=== PATIENT | male | born 1970 | race Two or more races ===

== ENCOUNTER 2016-11-06 18:24 | Emergency (ER) | payer OTHER, MEDICAID ==
[~2016-11-06] VITALS: Ht 172.7 cm; Wt 87.1 kg
[~2016-11-06 18:24] MED LIST: ALPR-229; ALPR1TAB7; ALPR2TAB2; CLON2TAB; CLON2TAB3; HYDR-2598; LISI-646; METH10TA97; MORP15TA; OMEP20TA44; SUCR1TAB; SULF-169
[2016-11-06 18:32] VITALS: BP 188/101
[2016-11-06] MEDS ORDERED: ALPRAZolam 0.5 MG TAB PO ONE (21:30)
== END 2016-11-06 21:30 | disposition home or self-care (01) ==
LOC: ER 18:25
DX: F41.9 Anxiety disorder, unspecified (principal); M19.90 Unspecified osteoarthritis, unspecified site; E11.9 Type 2 diabetes mellitus without complications; Z76.0 Encounter for issue of repeat prescription; Z88.6 Allergy status to analgesic agent; Z87.442 Personal history of urinary calculi; Z90.49 Acquired absence of other specified parts of digestive tract

== ENCOUNTER 2016-11-13 15:59 | Emergency (ER) | payer OTHER, MEDICAID ==
[~2016-11-13] VITALS: Ht 172.7 cm; Wt 99.3 kg
[2016-11-13 16:19] VITALS: BP 129/80
== END 2016-11-13 19:32 | disposition left against medical advice (07) ==
LOC: ER 16:03
DX: Z76.0 Encounter for issue of repeat prescription (principal); Z53.21 Procedure and treatment not carried out due to patient leaving prior to being seen by health care provider
CPT/HCPCS: 82962

== ENCOUNTER 2016-11-14 11:43 | Emergency (ER) | payer OTHER, MEDICAID ==
[~2016-11-14] VITALS: Ht 172.7 cm; Wt 99.3 kg
[2016-11-14 11:50] VITALS: BP 148/78
[2016-11-14] MEDS ORDERED: KETOROLAC TROMETH 60MG/2ML VIAL IM ONE (13:30)
== END 2016-11-14 14:17 | disposition home or self-care (01) ==
LOC: EDBD 11:43 → ER 11:49
DX: S29.019A Strain of muscle and tendon of unspecified wall of thorax, initial encounter (principal); S86.911A Strain of unspecified muscle(s) and tendon(s) at lower leg level, right leg, initial encounter; M19.90 Unspecified osteoarthritis, unspecified site; E11.9 Type 2 diabetes mellitus without complications; F11.10 Opioid abuse, uncomplicated; R07.9 Chest pain, unspecified; Z90.49 Acquired absence of other specified parts of digestive tract; Z88.6 Allergy status to analgesic agent; Z76.0 Encounter for issue of repeat prescription; W01.0XXA Fall on same level from slipping, tripping and stumbling without subsequent striking against object, initial encounter; Y93.89 Activity, other specified; Y99.8 Other external cause status; Y92.89 Other specified places as the place of occurrence of the external cause
CPT/HCPCS: 71101; 96372; 99284; J1885

== ENCOUNTER 2017-02-27 14:55 | Emergency (ER) | payer OTHER, MEDICAID ==
[~2017-02-27] VITALS: Ht 172.7 cm; Wt 85.7 kg
[2017-02-27 15:02] VITALS: BP 107/86
[2017-02-27] MEDS ORDERED: LORazepam 0.5 MG TAB PO ONE (17:15)
== END 2017-02-27 17:29 | disposition home or self-care (01) ==
LOC: ER 14:55
DX: F41.9 Anxiety disorder, unspecified (principal); M19.90 Unspecified osteoarthritis, unspecified site; E11.9 Type 2 diabetes mellitus without complications; G89.29 Other chronic pain; M54.9 Dorsalgia, unspecified; Z90.49 Acquired absence of other specified parts of digestive tract; Z76.0 Encounter for issue of repeat prescription; Z87.442 Personal history of urinary calculi; Z88.6 Allergy status to analgesic agent; Z88.5 Allergy status to narcotic agent

== ENCOUNTER 2017-03-08 13:43 | Emergency (ER) | payer OTHER, MEDICAID ==
[~2017-03-08] VITALS: Ht 172.7 cm; Wt 81.6 kg
[2017-03-08 13:58] VITALS: BP 141/94
== END 2017-03-08 15:18 | disposition home or self-care (01) ==
LOC: EDBD 13:43 → ER 13:43
DX: G89.29 Other chronic pain (principal); M54.5 Low back pain; E11.9 Type 2 diabetes mellitus without complications; M19.90 Unspecified osteoarthritis, unspecified site; F11.10 Opioid abuse, uncomplicated; Z76.0 Encounter for issue of repeat prescription; Z88.6 Allergy status to analgesic agent

== ENCOUNTER 2017-08-08 09:59 | Emergency (ER) | payer OTHER, MEDICAID ==
[~2017-08-08] VITALS: Ht 172.7 cm; Wt 83.0 kg
[2017-08-08 10:24] VITALS: BP 139/101
[2017-08-08] MEDS ORDERED: ALPRAZolam 0.5 MG TAB PO ONE (10:45)
[2017-08-08] MEDS ORDERED: LACTULOSE 20Gm/30ML SOLN PO ONE (10:45)
== END 2017-08-08 11:04 | disposition home or self-care (01) ==
LOC: ER 09:59
DX: K59.00 Constipation, unspecified (principal); M19.90 Unspecified osteoarthritis, unspecified site; E11.9 Type 2 diabetes mellitus without complications; Z90.49 Acquired absence of other specified parts of digestive tract; Z76.0 Encounter for issue of repeat prescription; Z79.899 Other long term (current) drug therapy; Z88.6 Allergy status to analgesic agent; Z88.5 Allergy status to narcotic agent

== ENCOUNTER 2017-08-31 20:54 | Emergency (ER) | payer OTHER, MEDICAID ==
[~2017-08-31] VITALS: Ht 172.7 cm; Wt 86.2 kg
[2017-08-31] MEDS ORDERED: LORazepam 2MG/ML-1ML VIAL ONE (22:30)
[2017-08-31] MEDS ORDERED: HYDROmorphone HCL 2 MG/ML VL ONE (22:30)
[2017-08-31] MEDS ORDERED: ONDANSETRON HCL 4 MG/2 ML VIAL ONE (22:30)
[2017-08-31] MEDS ORDERED: SODIUM CHLORIDE 0.9% 1,000 ML IV ONE (22:47)
[2017-08-31] MEDS ORDERED: IOHEXOL 350 MG/ML 100ML IJ ONE (22:53)
[2017-08-31] MEDS ORDERED: HYDROmorphone HCL 2 MG/ML VL IV ONE ×2 (23:00→23:30)
[2017-08-31] MEDS ORDERED: LORazepam 2MG/ML-1ML VIAL IV ONE (23:00)
[2017-08-31] MEDS ORDERED: ONDANSETRON HCL 4 MG/2 ML VIAL IV ONE (23:00)
[2017-08-31 23:02] LABS: Basophils # (auto) 0.1 uL; Basophils % (auto) 0.8 % (0.0-2.0); Eosinophils # (auto) 0.2 uL; Eosinophils % (auto) 1.5 % (0.0-7.0); Hematocrit 34.3 % (41.0-53.0); Hemoglobin 11.4 g/dL (13.5-17.5); Lymphocytes # (auto) 2.2 uL; Lymphocytes % (auto) 17.6 % (10.0-50.0); Mean Corpuscular Hemoglobin 29.6 pg (28.0-32.0); Mean Corpuscular Hgb Conc. 33.3 g/dL (32.0-36.0); Mean Corpuscular Volume 88.9 fL (80.0-100.0); Mean Platelet Volume 8.2 fL (6.9-10.8); Monocytes # (auto) 0.7 uL; Monocytes % (auto) 5.3 % (0.0-12.0); Neutrophils # (auto) 9.5 uL; Neutrophils % (auto) 74.8 % (37.0-80.0); Nucleated Red Blood Cells % 0.1 %; Platelet Count (auto) 258 10^3/uL (140-450); Red Cell Distribution Width 14.6 % (11.8-14.3); White Blood Cell 12.7 10^3/uL (4.4-10.8)
[2017-08-31 23:18] LABS: INR 0.92 (0.9-1.15); Partial Thromboplastin Time 21.2 sec (22.64-33.71)
[2017-08-31 23:22] LABS: Albumin 3.5 g/dL (3.4-5.0); BUN/Creatinine Ratio 15.8; Calcium 8.7 mg/dL (8.5-10.1); Potassium 3.5 mmol/L (3.5-5.1)
[2017-08-31 23:25] LABS: Bilirubin, Total 0.4 mg/dL (0.2-1.0); Total Protein 6.5 g/dL (6.4-8.2)
[2017-08-31] MEDS ORDERED: HETASTARCH 500 ML IV ONE (23:47)
[2017-09-01] MEDS ORDERED: HETASTARCH 500 ML IV ONE
[2017-09-01 00:25] VITALS: BP 111/55
== END 2017-09-01 00:36 | disposition short-term general hospital (02) ==
LOC: ER 20:54 → EDBD 20:54 → ER 09-01 00:36
DX: S36.039A Unspecified laceration of spleen, initial encounter (principal); I95.9 Hypotension, unspecified; E11.9 Type 2 diabetes mellitus without complications; Z88.5 Allergy status to narcotic agent; Z88.6 Allergy status to analgesic agent; Y04.8XXA Assault by other bodily force, initial encounter
CPT/HCPCS: 36415; 71250; 71260; 73200; 74177; 80053; 85025; 85610; 85730; 86850; 86900; 86901; 93005; 96361; 96365; 96375; 96376; 99285; J1170; J2060; J2405; J7030; Q9967; 86920

== ENCOUNTER 2017-09-07 07:58 | Emergency (ER) | payer OTHER, MEDICAID ==
[~2017-09-07] VITALS: Ht 172.7 cm; Wt 94.0 kg
[2017-09-07 08:39] VITALS: BP 145/94
[2017-09-07] MEDS ORDERED: ALPRAZolam 0.5 MG TAB PO ONE (08:45)
== END 2017-09-07 08:46 | disposition home or self-care (01) ==
LOC: ER 07:58
DX: F41.9 Anxiety disorder, unspecified (principal); G89.29 Other chronic pain; M54.5 Low back pain; Z88.6 Allergy status to analgesic agent; Z79.899 Other long term (current) drug therapy

== ENCOUNTER 2017-09-12 12:34 | Emergency (ER) | payer OTHER, MEDICAID ==
[~2017-09-12] VITALS: Ht 172.7 cm; Wt 93.6 kg
[2017-09-12 13:55] VITALS: BP 127/64
[2017-09-12] MEDS ORDERED: LORazepam 0.5 MG TAB PO ONE (14:00)
== END 2017-09-12 14:07 | disposition home or self-care (01) ==
LOC: ER 12:44
DX: F41.9 Anxiety disorder, unspecified (principal); M19.90 Unspecified osteoarthritis, unspecified site; E11.9 Type 2 diabetes mellitus without complications; Z90.49 Acquired absence of other specified parts of digestive tract; Z88.6 Allergy status to analgesic agent; Z76.0 Encounter for issue of repeat prescription

== ENCOUNTER 2017-10-30 07:52 | Emergency (ER) | payer OTHER, MEDICAID ==
[~2017-10-30] VITALS: Ht 172.7 cm; Wt 86.2 kg
[2017-10-30] MEDS ORDERED: LORazepam 2MG/ML-1ML VIAL IM ONE (10:00)
[2017-10-30 10:07] VITALS: BP 168/96
[2017-10-30] MEDS ORDERED: ALUM & MAG HYDROX-SIMETH LIQ(MAALOX) 30 ML PO ONE (10:15)
== END 2017-10-30 10:14 | disposition home or self-care (01) ==
LOC: ER 07:52
DX: F41.9 Anxiety disorder, unspecified (principal); F15.10 Other stimulant abuse, uncomplicated; R10.9 Unspecified abdominal pain; M19.90 Unspecified osteoarthritis, unspecified site; E11.9 Type 2 diabetes mellitus without complications; I10 Essential (primary) hypertension; Z88.6 Allergy status to analgesic agent; Z79.899 Other long term (current) drug therapy; Z90.49 Acquired absence of other specified parts of digestive tract; Z87.11 Personal history of peptic ulcer disease
CPT/HCPCS: 96372; 99284; J2060

== ENCOUNTER 2017-11-05 14:13 | Emergency (ER) | payer OTHER, MEDICAID ==
[~2017-11-05] VITALS: Ht 172.7 cm; Wt 88.5 kg
[2017-11-05 14:30] VITALS: BP 143/99
[2017-11-05] MEDS ORDERED: LORazepam 0.5 MG TAB PO ONE (15:15)
== END 2017-11-05 15:32 | disposition home or self-care (01) ==
LOC: ER 14:13
DX: F41.9 Anxiety disorder, unspecified (principal); F32.9 Major depressive disorder, single episode, unspecified; I10 Essential (primary) hypertension; K21.9 Gastro-esophageal reflux disease without esophagitis; E11.9 Type 2 diabetes mellitus without complications; F15.10 Other stimulant abuse, uncomplicated; Z90.49 Acquired absence of other specified parts of digestive tract; Z76.0 Encounter for issue of repeat prescription; Z88.5 Allergy status to narcotic agent; Z79.899 Other long term (current) drug therapy

== ENCOUNTER 2017-11-30 18:25 | Emergency (ER) | payer OTHER, MEDICAID ==
[~2017-11-30] VITALS: Ht 172.7 cm; Wt 86.2 kg
[2017-11-30 18:49] VITALS: BP 155/95
[2017-11-30] MEDS ORDERED: ALPRAZolam 0.5 MG TAB PO ONE (19:15)
== END 2017-11-30 19:38 | disposition home or self-care (01) ==
LOC: ER 18:25
DX: F41.9 Anxiety disorder, unspecified (principal); F32.9 Major depressive disorder, single episode, unspecified; K21.9 Gastro-esophageal reflux disease without esophagitis; I10 Essential (primary) hypertension; E11.9 Type 2 diabetes mellitus without complications; F15.10 Other stimulant abuse, uncomplicated; Z76.0 Encounter for issue of repeat prescription; Z87.11 Personal history of peptic ulcer disease; Z90.49 Acquired absence of other specified parts of digestive tract; Z88.6 Allergy status to analgesic agent

== ENCOUNTER 2017-12-06 12:44 | Emergency (ER) | payer OTHER, MEDICAID ==
[~2017-12-06] VITALS: Ht 172.7 cm; Wt 87.1 kg
[2017-12-06 13:04] VITALS: BP 138/87
== END 2017-12-06 19:11 | disposition home or self-care (01) ==
LOC: ER 12:44
DX: S86.912A Strain of unspecified muscle(s) and tendon(s) at lower leg level, left leg, initial encounter (principal); F41.9 Anxiety disorder, unspecified; Z76.0 Encounter for issue of repeat prescription; K21.9 Gastro-esophageal reflux disease without esophagitis; I10 Essential (primary) hypertension; E11.9 Type 2 diabetes mellitus without complications; F15.10 Other stimulant abuse, uncomplicated; Z59.0 Homelessness; Z79.899 Other long term (current) drug therapy; Z88.6 Allergy status to analgesic agent; X58.XXXA Exposure to other specified factors, initial encounter; Y93.89 Activity, other specified; Y99.8 Other external cause status; Y92.89 Other specified places as the place of occurrence of the external cause
CPT/HCPCS: 73562

== ENCOUNTER 2017-12-10 14:38 | Emergency (ER) | payer OTHER, MEDICAID ==
[~2017-12-10] VITALS: Ht 172.7 cm; Wt 90.7 kg
[2017-12-10 15:06] VITALS: BP 126/84
[2017-12-10 15:44] LABS: Basophils # (auto) 0.1 uL; Eosinophils # (auto) 0.3 uL; Eosinophils % (auto) 5.3 % (0.0-7.0); Hemoglobin 12.3 g/dL (13.5-17.5); Lymphocytes # (auto) 2.1 uL; Lymphocytes % (auto) 34.8 % (10.0-50.0); Mean Corpuscular Hemoglobin 27.6 pg (28.0-32.0); Mean Corpuscular Hgb Conc. 33.3 g/dL (32.0-36.0); Mean Corpuscular Volume 82.8 fL (80.0-100.0); Monocytes # (auto) 0.4 uL; Monocytes % (auto) 6.6 % (0.0-12.0); Neutrophils # (auto) 3.1 uL; Neutrophils % (auto) 52.3 % (37.0-80.0); Nucleated Red Blood Cells % 0.1 %; Platelet Count (auto) 238 10^3/uL (140-450); Red Blood Cells 4.47 10^6/uL (4.5-5.90); Red Cell Distribution Width 16.7 % (11.8-14.3); White Blood Cell 5.9 10^3/uL (4.4-10.8)
[2017-12-10 15:46] LABS: Urine Bacteria NONE SEEN /hpf (None Seen); Urine Blood Negative /uL (Negative); Urine Specific Gravity 1.023 (1.001-1.035); Urine WBC 1 /hpf (0 - 3)
[2017-12-10 16:06] LABS: Albumin 3.7 g/dL (3.4-5.0); Bilirubin, Total 0.4 mg/dL (0.2-1.0); Calcium 9.2 mg/dL (8.5-10.1); Potassium 4.1 mmol/L (3.5-5.1); Total Protein 6.9 g/dL (6.4-8.2)
== END 2017-12-10 17:04 | disposition home or self-care (01) ==
LOC: ER 14:38
DX: K92.1 Melena (principal); D64.9 Anemia, unspecified; E11.9 Type 2 diabetes mellitus without complications; K21.9 Gastro-esophageal reflux disease without esophagitis; I10 Essential (primary) hypertension; G89.29 Other chronic pain; M54.9 Dorsalgia, unspecified; Z90.49 Acquired absence of other specified parts of digestive tract; M19.90 Unspecified osteoarthritis, unspecified site; Z59.0 Homelessness; Z87.11 Personal history of peptic ulcer disease; Z88.6 Allergy status to analgesic agent; Z79.899 Other long term (current) drug therapy
CPT/HCPCS: 36415; 80053; 81001; 82150; 83690; 85025; 86850; 86900; 86901

== ENCOUNTER 2018-01-04 18:04 | Emergency (ER) | payer OTHER, MEDICAID ==
[~2018-01-04] VITALS: Ht 172.7 cm; Wt 89.4 kg
[2018-01-04 18:34] VITALS: BP 131/87
[2018-01-04] MEDS ORDERED: LORazepam 2MG/ML-1ML VIAL IM ONE (22:00)
== END 2018-01-04 23:07 | disposition home or self-care (01) ==
LOC: ER 18:04
DX: F41.9 Anxiety disorder, unspecified (principal); F32.9 Major depressive disorder, single episode, unspecified; K21.9 Gastro-esophageal reflux disease without esophagitis; I10 Essential (primary) hypertension; E11.9 Type 2 diabetes mellitus without complications; Z87.11 Personal history of peptic ulcer disease; Z90.49 Acquired absence of other specified parts of digestive tract; Z88.6 Allergy status to analgesic agent; Z88.8 Allergy status to other drugs, medicaments and biological substances; Z59.0 Homelessness
CPT/HCPCS: 96372; 99283; J2060

== ENCOUNTER 2018-01-31 08:46 | Emergency (ER) | payer OTHER, MEDICAID ==
[~2018-01-31] VITALS: Ht 172.7 cm; Wt 89.8 kg
[2018-01-31] MEDS ORDERED: PROMETHAZINE HCL 25 MG/ML 1ML IM ONE (12:30)
[2018-01-31] MEDS ORDERED: MEPERIDINE HCL (50 MG/ML) 1 ML VIAL IM ONE (12:30)
[2018-01-31] MEDS ORDERED: ALPRAZolam 0.5 MG TAB PO ONE (13:15)
== END 2018-01-31 14:23 | disposition left against medical advice (07) ==
LOC: ER 08:46
DX: G89.29 Other chronic pain (principal); M54.5 Low back pain; F41.1 Generalized anxiety disorder; E11.9 Type 2 diabetes mellitus without complications; I10 Essential (primary) hypertension; K21.9 Gastro-esophageal reflux disease without esophagitis; Z90.49 Acquired absence of other specified parts of digestive tract; Z59.0 Homelessness; Z88.5 Allergy status to narcotic agent; Z79.891 Long term (current) use of opiate analgesic; Z79.899 Other long term (current) drug therapy
CPT/HCPCS: 96372; 99284; J2175; J2550

== ENCOUNTER 2018-02-27 08:21 | Emergency (ER) | payer OTHER, MEDICAID ==
[~2018-02-27] VITALS: Ht 172.7 cm; Wt 85.3 kg
[2018-02-27 08:55] VITALS: BP 174/94
[2018-02-27] MEDS ORDERED: ALPRAZolam 0.5 MG TAB PO ONE (09:15)
[2018-02-27] MEDS ORDERED: KETOROLAC TROMETH 60MG/2ML VIAL IM ONE (09:15)
== END 2018-02-27 09:52 | disposition home or self-care (01) ==
LOC: ER 08:31
DX: G89.29 Other chronic pain (principal); M54.5 Low back pain; F41.9 Anxiety disorder, unspecified
CPT/HCPCS: 96372; 99283; J1885

== ENCOUNTER 2018-03-02 09:27 | Emergency (ER) | payer OTHER, MEDICAID ==
[~2018-03-02] VITALS: Ht 172.7 cm; Wt 83.5 kg
[2018-03-02 11:54] LABS: Basophils # (auto) 0.1 uL; Basophils % (auto) 0.8 % (0.0-2.0); Eosinophils # (auto) 0.1 uL; Hematocrit 42.1 % (41.0-53.0); Hemoglobin 14.1 g/dL (13.5-17.5); Lymphocytes # (auto) 2.4 uL; Lymphocytes % (auto) 37.5 % (10.0-50.0); Mean Corpuscular Hemoglobin 28.4 pg (28.0-32.0); Mean Corpuscular Hgb Conc. 33.5 g/dL (32.0-36.0); Mean Corpuscular Volume 84.9 fL (80.0-100.0); Monocytes # (auto) 0.4 uL; Monocytes % (auto) 6.2 % (0.0-12.0); Neutrophils # (auto) 3.4 uL; Neutrophils % (auto) 53.5 % (37.0-80.0); Nucleated Red Blood Cells % 0.1 %; Platelet Count (auto) 353 10^3/uL (140-450); Red Blood Cells 4.96 10^6/uL (4.5-5.90); Red Cell Distribution Width 15.3 % (11.8-14.3); White Blood Cell 6.4 10^3/uL (4.4-10.8)
[2018-03-02 12:00] VITALS: BP 132/89
[2018-03-02] MEDS ORDERED: LORazepam 0.5 MG TAB PO ONE (12:15)
[2018-03-02] MEDS ORDERED: OXYCODONE W/ ACETAMINOPHEN 5/325MG TABLET PO ONE (12:15)
[2018-03-02 12:16] LABS: Alanine Aminotransferase 23 U/L (16-61); Albumin 4.5 g/dL (3.4-5.0); Alkaline Phosphatase 94 U/L (45-117); Anion Gap 8 (5-15); Aspartate Aminotransferase 17 U/L (15-37); BUN/Creatinine Ratio 22.1; Bilirubin, Total 0.7 mg/dL (0.2-1.0); Blood Urea Nitrogen 23 mg/dL (7-18); Calcium 9.2 mg/dL (8.5-10.1); Carbon Dioxide 28 mmol/L (21-32); Chloride 102 mmol/L (98-107); GFR African American 98 mL/min; GFR Non-African American 81 mL/min; Glucose 115 mg/dL (74-106); Potassium 3.8 mmol/L (3.5-5.1); Sodium 138 mmol/L (136-145); Total Protein 8.2 g/dL (6.4-8.2)
== END 2018-03-02 12:48 | disposition home or self-care (01) ==
LOC: ER 09:32
DX: G89.29 Other chronic pain (principal); M54.9 Dorsalgia, unspecified; F41.9 Anxiety disorder, unspecified; F32.9 Major depressive disorder, single episode, unspecified; I10 Essential (primary) hypertension; E11.9 Type 2 diabetes mellitus without complications; K21.9 Gastro-esophageal reflux disease without esophagitis; Z87.11 Personal history of peptic ulcer disease; Z59.0 Homelessness; Z90.49 Acquired absence of other specified parts of digestive tract; Z88.6 Allergy status to analgesic agent
CPT/HCPCS: 36415; 80053; 84484; 85025

== ENCOUNTER 2018-03-30 07:24 | Emergency (ER) | payer OTHER, MEDICAID ==
[~2018-03-30] VITALS: Ht 172.7 cm; Wt 86.2 kg
[2018-03-30] MEDS ORDERED: OXYCODONE W/ ACETAMINOPHEN 5/325MG TABLET PO ONE (08:00)
[2018-03-30] MEDS ORDERED: LORazepam 0.5 MG TAB PO ONE (08:00)
[2018-03-30 08:25] VITALS: BP 148/78
== END 2018-03-30 08:29 | disposition home or self-care (01) ==
LOC: ER 07:28
DX: G89.29 Other chronic pain (principal); M54.9 Dorsalgia, unspecified; F41.9 Anxiety disorder, unspecified; R51 Headache; M19.90 Unspecified osteoarthritis, unspecified site; E11.9 Type 2 diabetes mellitus without complications; K21.9 Gastro-esophageal reflux disease without esophagitis; I10 Essential (primary) hypertension; Z79.899 Other long term (current) drug therapy; Z88.6 Allergy status to analgesic agent; Z90.49 Acquired absence of other specified parts of digestive tract
CPT/HCPCS: 82962

== ENCOUNTER 2018-04-05 19:44 | Emergency (ER) | payer OTHER, MEDICAID ==
[~2018-04-05] VITALS: Ht 172.7 cm; Wt 82.6 kg
[2018-04-05] MEDS ORDERED: LORazepam 0.5 MG TAB PO ONE (20:15)
[2018-04-05 20:39] VITALS: BP 148/78
== END 2018-04-05 20:41 | disposition home or self-care (01) ==
LOC: ER 19:44
DX: F41.9 Anxiety disorder, unspecified (principal); F32.9 Major depressive disorder, single episode, unspecified; E11.9 Type 2 diabetes mellitus without complications; K21.9 Gastro-esophageal reflux disease without esophagitis; I10 Essential (primary) hypertension; G89.29 Other chronic pain; M54.9 Dorsalgia, unspecified; Z90.49 Acquired absence of other specified parts of digestive tract; Z88.6 Allergy status to analgesic agent; Z59.0 Homelessness

== ENCOUNTER 2018-05-26 16:55 | Emergency (ER) | payer OTHER, MEDICAID ==
[~2018-05-26] VITALS: Ht 180.3 cm; Wt 86.2 kg
[~2018-05-26 16:55] MED LIST changes: -CLON2TAB3; +CLON2TAB6
[2018-05-27] MEDS ORDERED: SODIUM CHLORIDE 0.9% 1,000 ML IV ONE (01:15)
[2018-05-27] MEDS ORDERED: LORazepam 2MG/ML-1ML VIAL IV ONE (01:15)
[2018-05-27 01:59] LABS: Basophils # (auto) 0.1 uL; Basophils % (auto) 1.4 % (0.0-2.0); Eosinophils # (auto) 0.1 uL; Eosinophils % (auto) 2.2 % (0.0-7.0); Hematocrit 40.7 % (41.0-53.0); Hemoglobin 13.6 g/dL (13.5-17.5); Lymphocytes # (auto) 2.4 uL; Lymphocytes % (auto) 36.8 % (10.0-50.0); Mean Corpuscular Hemoglobin 28.7 pg (28.0-32.0); Mean Corpuscular Hgb Conc. 33.4 g/dL (32.0-36.0); Mean Corpuscular Volume 86.1 fL (80.0-100.0); Monocytes # (auto) 0.5 uL; Monocytes % (auto) 7.7 % (0.0-12.0); Neutrophils # (auto) 3.3 uL; Neutrophils % (auto) 51.9 % (37.0-80.0); Nucleated Red Blood Cells % 0.1 %; Platelet Count (auto) 339 10^3/uL (140-450); Red Blood Cells 4.73 10^6/uL (4.5-5.90); Red Cell Distribution Width 14.3 % (11.8-14.3); White Blood Cell 6.4 10^3/uL (4.4-10.8)
[2018-05-27 02:16] LABS: Albumin 4.2 g/dL (3.4-5.0); BUN/Creatinine Ratio 30.7; Calcium 8.8 mg/dL (8.5-10.1); Potassium 3.8 mmol/L (3.5-5.1)
[2018-05-27 02:25] LABS: Bilirubin, Total 0.5 mg/dL (0.2-1.0); Total Protein 7.4 g/dL (6.4-8.2)
[2018-05-27 04:00] VITALS: BP 154/56
== END 2018-05-27 04:34 | disposition home or self-care (01) ==
LOC: ER 17:04
DX: N50.811 Right testicular pain (principal); M54.5 Low back pain; G89.29 Other chronic pain; F41.9 Anxiety disorder, unspecified; E11.9 Type 2 diabetes mellitus without complications; K21.9 Gastro-esophageal reflux disease without esophagitis; I10 Essential (primary) hypertension; Z90.49 Acquired absence of other specified parts of digestive tract; Z79.899 Other long term (current) drug therapy
CPT/HCPCS: 36415; 76870; 80053; 82962; 85025; 96374; 99285; J2060; J7030

== ENCOUNTER 2018-05-27 08:20 | Emergency (ER) | payer OTHER, MEDICAID ==
[~2018-05-27] VITALS: Ht 172.7 cm; Wt 86.2 kg
[2018-05-27 08:47] VITALS: BP 149/94
[2018-05-27] MEDS ORDERED: KETOROLAC TROMETH 60MG/2ML VIAL IM ONE (09:15)
== END 2018-05-27 09:33 | disposition home or self-care (01) ==
LOC: ER 08:20
DX: G89.29 Other chronic pain (principal); M54.5 Low back pain; E11.9 Type 2 diabetes mellitus without complications; K21.9 Gastro-esophageal reflux disease without esophagitis; I10 Essential (primary) hypertension; Z90.49 Acquired absence of other specified parts of digestive tract; Z87.11 Personal history of peptic ulcer disease
CPT/HCPCS: 96372; 99283; J1885

== ENCOUNTER 2018-05-28 09:21 | Emergency (ER) | payer MEDICARE, MEDICAID ==
[~2018-05-28] VITALS: Ht 172.7 cm; Wt 86.2 kg
[2018-05-28 09:28] VITALS: BP 163/92
[2018-05-28] MEDS ORDERED: LORazepam 2MG/ML-1ML VIAL IM ONE (10:00)
== END 2018-05-28 10:25 | disposition home or self-care (01) ==
LOC: ER 09:21
DX: F41.1 Generalized anxiety disorder (principal); F32.9 Major depressive disorder, single episode, unspecified; E11.9 Type 2 diabetes mellitus without complications; I10 Essential (primary) hypertension; K21.9 Gastro-esophageal reflux disease without esophagitis; Z90.49 Acquired absence of other specified parts of digestive tract
CPT/HCPCS: 96372; 99284; J2060

== ENCOUNTER 2018-06-23 07:16 | Emergency (ER) | payer OTHER, MEDICAID ==
[~2018-06-23] VITALS: Ht 172.7 cm; Wt 90.7 kg
[2018-06-23 07:27] VITALS: BP 132/111
[2018-06-23] MEDS ORDERED: LORazepam 0.5 MG TAB PO ONE (08:15)
== END 2018-06-23 08:28 | disposition home or self-care (01) ==
LOC: ER 07:21
DX: F41.9 Anxiety disorder, unspecified (principal); G89.29 Other chronic pain; M54.5 Low back pain; I10 Essential (primary) hypertension; Z76.0 Encounter for issue of repeat prescription

== ENCOUNTER 2018-06-28 13:44 | Emergency (ER) | payer OTHER, MEDICAID ==
[~2018-06-28] VITALS: Ht 172.7 cm; Wt 90.7 kg
[2018-06-28] MEDS ORDERED: LORazepam 0.5 MG TAB PO ONE (14:30)
[2018-06-28 15:00] VITALS: BP 124/70
== END 2018-06-28 15:25 | disposition home or self-care (01) ==
LOC: ER 13:46
DX: F41.1 Generalized anxiety disorder (principal); E11.9 Type 2 diabetes mellitus without complications; I10 Essential (primary) hypertension; K21.9 Gastro-esophageal reflux disease without esophagitis; Z90.49 Acquired absence of other specified parts of digestive tract
CPT/HCPCS: 82962

== ENCOUNTER 2018-07-06 12:43 | Emergency (ER) | payer OTHER, MEDICAID ==
[~2018-07-06] VITALS: Ht 172.7 cm; Wt 90.7 kg
[2018-07-06 13:15] VITALS: BP 146/91
== END 2018-07-06 15:07 | disposition left against medical advice (07) ==
LOC: ER 12:53
DX: M54.9 Dorsalgia, unspecified (principal); Z53.21 Procedure and treatment not carried out due to patient leaving prior to being seen by health care provider

== ENCOUNTER 2018-07-31 12:56 | Emergency (ER) | payer OTHER, MEDICAID ==
[~2018-07-31] VITALS: Ht 172.7 cm; Wt 84.8 kg
[2018-07-31 13:06] VITALS: BP 146/90
== END 2018-07-31 15:09 | disposition left against medical advice (07) ==
LOC: ER 12:56
DX: R10.9 Unspecified abdominal pain (principal); Z53.21 Procedure and treatment not carried out due to patient leaving prior to being seen by health care provider
CPT/HCPCS: 93005

== ENCOUNTER 2018-08-14 13:37 | Emergency (ER) | payer MEDICAID, OTHER ==
[~2018-08-14] VITALS: Ht 172.7 cm; Wt 86.2 kg
[2018-08-14 13:46] VITALS: BP 134/79
[2018-08-14 14:18] LABS: Basophils # (auto) 0 uL; Hemoglobin 7.6 g/dL (13.5-17.5); Lymphocytes # (auto) 1.5 uL; Red Blood Cells 2.54 10^6/uL (4.5-5.90)
[2018-08-14 14:19] LABS: Basophils % (auto) 0.7 % (0.0-2.0); Eosinophils # (auto) 0.1 uL; Eosinophils % (auto) 2.2 % (0.0-7.0); Hematocrit 22.9 % (41.0-53.0); Lymphocytes % (auto) 23.7 % (10.0-50.0); Mean Corpuscular Hgb Conc. 33.3 g/dL (32.0-36.0); Mean Corpuscular Volume 90.1 fL (80.0-100.0); Monocytes # (auto) 0.4 uL; Monocytes % (auto) 5.8 % (0.0-12.0); Neutrophils # (auto) 4.3 uL; Neutrophils % (auto) 67.6 % (37.0-80.0); Platelet Count (auto) 314 10^3/uL (140-450); Red Cell Distribution Width 15.8 % (11.8-14.3); White Blood Cell 6.3 10^3/uL (4.4-10.8)
[2018-08-14 14:21] LABS: Urine Bacteria NONE SEEN /hpf (None Seen); Urine Blood Negative /uL (Negative); Urine Specific Gravity 1.016 (1.001-1.035); Urine WBC 1 /hpf (0 - 3)
[2018-08-14 14:34] LABS: Albumin 3.4 g/dL (3.4-5.0); BUN/Creatinine Ratio 27.1
[2018-08-14 14:37] LABS: Bilirubin, Total 0.3 mg/dL (0.2-1.0); Total Protein 6.2 g/dL (6.4-8.2)
== END 2018-08-15 01:48 | disposition left against medical advice (07) ==
LOC: ER 13:45
DX: R10.13 Epigastric pain (principal); Z53.21 Procedure and treatment not carried out due to patient leaving prior to being seen by health care provider
CPT/HCPCS: 36415; 74176; 80053; 81001; 85025

== ENCOUNTER → 2018-08-14 | Emergency (ER) | payer OTHER | END | disposition left against medical advice (07) | LOC: ER 18:21 | DX: R10.9 Unspecified abdominal pain (principal); Z53.21 Procedure and treatment not carried out due to patient leaving prior to being seen by health care provider ==

== ENCOUNTER 2018-08-17 15:21 | Emergency (ER) | payer MEDICARE, MEDICAID ==
[~2018-08-17] VITALS: Ht 172.7 cm; Wt 86.2 kg
[2018-08-17 15:35] VITALS: BP 124/77
[2018-08-17] MEDS: SODIUM CHLORIDE 0.9% 1,000 ML IV ONE ×2 (16:28)
[2018-08-17 16:55] LABS: Basophils # (auto) 0 uL; Eosinophils # (auto) 0.1 uL; Neutrophils # (auto) 2.8 uL; Red Cell Distribution Width 15.6 % (11.8-14.3); White Blood Cell 4.4 10^3/uL (4.4-10.8)
[2018-08-17 16:58] LABS: Basophils % (auto) 0.9 % (0.0-2.0); Eosinophils % (auto) 1.9 % (0.0-7.0); Hematocrit 24.3 % (41.0-53.0); Lymphocytes # (auto) 1.2 uL; Lymphocytes % (auto) 27.1 % (10.0-50.0); Mean Corpuscular Hemoglobin 28.9 pg (28.0-32.0); Mean Corpuscular Hgb Conc. 32.8 g/dL (32.0-36.0); Monocytes # (auto) 0.2 uL; Monocytes % (auto) 5.5 % (0.0-12.0); Neutrophils % (auto) 64.6 % (37.0-80.0); Nucleated Red Blood Cells % 0.1 %; Platelet Count (auto) 400 10^3/uL (140-450); Red Blood Cells 2.76 10^6/uL (4.5-5.90)
[2018-08-17 17:07] LABS: Alanine Aminotransferase 45 U/L (16-61); Albumin 3.5 g/dL (3.4-5.0); Amylase 41 U/L (25-115); Anion Gap 8 (5-15); Blood Urea Nitrogen 38 mg/dL (7-18); Calcium 8.9 mg/dL (8.5-10.1); Carbon Dioxide 24 mmol/L (21-32); Chloride 105 mmol/L (98-107); Glucose 124 mg/dL (74-106); Lipase 155 U/L (73-393); Potassium 3.9 mmol/L (3.5-5.1); Sodium 137 mmol/L (136-145)
[2018-08-17 17:12] LABS: Alkaline Phosphatase 96 U/L (45-117); Aspartate Aminotransferase 26 U/L (15-37); BUN/Creatinine Ratio 30.6; Bilirubin, Total 0.6 mg/dL (0.2-1.0); GFR African American 80 mL/min; GFR Non-African American 66 mL/min; Total Protein 6.6 g/dL (6.4-8.2)
[2018-08-17 17:13] LABS: INR 0.96 (0.9-1.15); Partial Thromboplastin Time 26.8 sec (23.78-33.04); Prothrombin Time 10.3 sec (9.27-12.13)
== END 2018-08-18 11:56 | disposition home or self-care (01) ==
LOC: ER 15:31
DX: D64.9 Anemia, unspecified (principal); E11.9 Type 2 diabetes mellitus without complications; K21.9 Gastro-esophageal reflux disease without esophagitis; I10 Essential (primary) hypertension; Z87.11 Personal history of peptic ulcer disease; Z90.49 Acquired absence of other specified parts of digestive tract
CPT/HCPCS: 36415; 74176; 80053; 82150; 83605; 83690; 84484; 85025; 85610; 85730; 87040

== ENCOUNTER 2018-08-19 09:34 | Emergency (ER) | payer OTHER, MEDICAID ==
[~2018-08-19] VITALS: Ht 172.7 cm; Wt 86.2 kg
[2018-08-19 09:47] VITALS: BP 127/70
== END 2018-08-19 10:08 | disposition home or self-care (01) ==
LOC: ER 09:34
DX: F41.9 Anxiety disorder, unspecified (principal); F32.9 Major depressive disorder, single episode, unspecified; K21.9 Gastro-esophageal reflux disease without esophagitis; I10 Essential (primary) hypertension; E11.9 Type 2 diabetes mellitus without complications; Z90.49 Acquired absence of other specified parts of digestive tract; Z87.11 Personal history of peptic ulcer disease
CPT/HCPCS: 93005

== ENCOUNTER 2018-09-15 21:25 | Emergency (ER) | payer OTHER, MEDICAID ==
[~2018-09-15] VITALS: Ht 172.7 cm; Wt 90.7 kg
[2018-09-15 21:40] VITALS: BP 152/87
[2018-09-15 22:27] LABS: Basophils # (auto) 0.1 uL; Eosinophils # (auto) 0.2 uL; Eosinophils % (auto) 3.7 % (0.0-7.0); Monocytes # (auto) 0.5 uL
[2018-09-15 22:29] LABS: Basophils % (auto) 1.2 % (0.0-2.0); Hematocrit 29.2 % (41.0-53.0); Hemoglobin 9.2 g/dL (13.5-17.5); Lymphocytes # (auto) 1.8 uL; Lymphocytes % (auto) 28.3 % (10.0-50.0); Mean Corpuscular Hemoglobin 24.4 pg (28.0-32.0); Mean Corpuscular Hgb Conc. 31.4 g/dL (32.0-36.0); Mean Corpuscular Volume 77.8 fL (80.0-100.0); Monocytes % (auto) 7.5 % (0.0-12.0); Neutrophils # (auto) 3.8 uL; Neutrophils % (auto) 59.3 % (37.0-80.0); Nucleated Red Blood Cells % 0.1 %; Platelet Count (auto) 388 10^3/uL (140-450); Red Blood Cells 3.76 10^6/uL (4.5-5.90); White Blood Cell 6.4 10^3/uL (4.4-10.8)
[2018-09-15 22:44] LABS: BUN/Creatinine Ratio 37.5; Potassium 4.2 mmol/L (3.5-5.1)
[2018-09-15 22:45] LABS: Albumin 3.8 g/dL (3.4-5.0); Calcium 8.8 mg/dL (8.5-10.1)
[2018-09-15 22:47] LABS: Bilirubin, Total 0.5 mg/dL (0.2-1.0); Total Protein 7.1 g/dL (6.4-8.2)
== END 2018-09-16 03:20 | disposition left against medical advice (07) ==
LOC: ER 21:33
DX: K92.0 Hematemesis (principal); Z53.21 Procedure and treatment not carried out due to patient leaving prior to being seen by health care provider
CPT/HCPCS: 36415; 80053; 85025

== ENCOUNTER 2018-10-16 14:24 | Emergency (ER) | payer OTHER, MEDICAID ==
[~2018-10-16] VITALS: Ht 172.7 cm; Wt 82.6 kg
[2018-10-16 15:25] VITALS: BP 143/77
[2018-10-16] MEDS ORDERED: KETOROLAC TROMETH 60MG/2ML VIAL IM ONE (16:15)
== END 2018-10-16 16:40 | disposition home or self-care (01) ==
LOC: ER 14:28
DX: M77.9 Enthesopathy, unspecified (principal); M25.522 Pain in left elbow; E11.9 Type 2 diabetes mellitus without complications; K21.9 Gastro-esophageal reflux disease without esophagitis; I10 Essential (primary) hypertension; Z90.49 Acquired absence of other specified parts of digestive tract; Z79.899 Other long term (current) drug therapy
CPT/HCPCS: 82962; 96372; 99283; J1885

== ENCOUNTER 2018-10-18 14:45 | Emergency (ER) | payer OTHER, MEDICAID ==
[~2018-10-18] VITALS: Ht 172.7 cm; Wt 82.6 kg
[2018-10-18 14:56] VITALS: BP 168/100
== END 2018-10-18 20:00 | disposition left against medical advice (07) ==
LOC: ER 14:45
DX: F41.9 Anxiety disorder, unspecified (principal); Z53.21 Procedure and treatment not carried out due to patient leaving prior to being seen by health care provider

== ENCOUNTER 2019-03-15 08:12 | Emergency (ER) | payer MEDICARE, MEDICAID ==
[~2019-03-15] VITALS: Ht 172.7 cm; Wt 86.2 kg
[2019-03-15] MEDS: LIDOCAINE VISCOUS 2% 15ML UD PO ONE (09:41)
[2019-03-15] MEDS: ALUM & MAG HYDROX-SIMETH LIQ(MAALOX) 30 ML PO ONE (09:41)
[2019-03-15] MEDS: DONNATAL 5ml ORAL Elix (BELLADONNA ALK-PHENOBARB) PO ONE (09:41)
[2019-03-15] MEDS: GABAPENTIN 300 MG CAP PO ONE (09:41)
[2019-03-15] MEDS: cloNIDine HCL 0.1 MG TAB PO ONE (10:02)
[2019-03-15 10:15] LABS: Calcium 8.6 mg/dL (8.5-10.1); Potassium 3.8 mmol/L (3.5-5.1)
[2019-03-15 10:19] LABS: BUN/Creatinine Ratio 14.9; Bilirubin, Total 0.4 mg/dL (0.2-1.0); Total Protein 7.6 g/dL (6.4-8.2)
[2019-03-15 10:30] LABS: Basophils # (auto) 0.1 uL; Basophils % (auto) 1.5 % (0.0-2.0); Eosinophils # (auto) 0.1 uL; Eosinophils % (auto) 1.6 % (0.0-7.0); Hemoglobin 9.8 g/dL (13.5-17.5); Monocytes # (auto) 0.3 uL; White Blood Cell 5.8 10^3/uL (4.4-10.8)
[2019-03-15 10:33] LABS: Hematocrit 30.1 % (41.0-53.0); Lymphocytes # (auto) 1.3 uL; Lymphocytes % (auto) 21.6 % (10.0-50.0); Mean Corpuscular Hemoglobin 25.6 pg (28.0-32.0); Mean Corpuscular Hgb Conc. 32.6 g/dL (32.0-36.0); Mean Corpuscular Volume 78.7 fL (80.0-100.0); Monocytes % (auto) 4.7 % (0.0-12.0); Neutrophils # (auto) 4.1 uL; Neutrophils % (auto) 70.6 % (37.0-80.0); Platelet Count (auto) 401 10^3/uL (140-450); Red Blood Cells 3.82 10^6/uL (4.5-5.90)
[2019-03-15 10:40] LABS: Red Cell Distribution Width 21.1 % (11.8-14.3)
[2019-03-15 11:42] LABS: Urine Bacteria NONE SEEN /hpf (None Seen); Urine Blood Negative /uL (Negative); Urine Hyaline Cast MANY /lpf (0 - 2); Urine Mucus FEW (None Seen); Urine Specific Gravity 1.025 (1.001-1.035); Urine WBC 1 /hpf (0 - 3)
[2019-03-15 12:25] VITALS: BP 152/93
== END 2019-03-15 12:27 | disposition home or self-care (01) ==
LOC: ER 08:12
DX: K29.70 Gastritis, unspecified, without bleeding (principal); E11.9 Type 2 diabetes mellitus without complications; K21.9 Gastro-esophageal reflux disease without esophagitis; I10 Essential (primary) hypertension; Z90.49 Acquired absence of other specified parts of digestive tract; Z79.899 Other long term (current) drug therapy
CPT/HCPCS: 36415; 74176; 80053; 81001; 82150; 83690; 85025

== ENCOUNTER 2019-06-10 07:31 | Emergency (ER) | payer OTHER, MEDICAID ==
[~2019-06-10] VITALS: Ht 172.7 cm; Wt 86.2 kg
[~2019-06-10 07:31] MED LIST changes: +CLON-707; -CLON2TAB6
[2019-06-10] MEDS ORDERED: SODIUM CHLORIDE 0.9% 1,000 ML IV ONE (08:14)
[2019-06-10] MEDS ORDERED: FAMOTIDINE INJECTION 40 MG in SODIUM CHL 0.9% 100 ML IV ONE (08:15)
[2019-06-10 08:23] LABS: Basophils # (auto) 0.1 uL; Lymphocytes # (auto) 1.2 uL; Monocytes # (auto) 0.4 uL
[2019-06-10 08:26] LABS: Basophils % (auto) 1.6 % (0.0-2.0); Eosinophils # (auto) 0.2 uL; Eosinophils % (auto) 3.7 % (0.0-7.0); Hematocrit 31.6 % (41.0-53.0); Hemoglobin 9.8 g/dL (13.5-17.5); Lymphocytes % (auto) 24.8 % (10.0-50.0); Mean Corpuscular Hemoglobin 21.7 pg (28.0-32.0); Mean Corpuscular Hgb Conc. 30.9 g/dL (32.0-36.0); Mean Corpuscular Volume 70.2 fL (80.0-100.0); Neutrophils # (auto) 2.9 uL; Neutrophils % (auto) 61.9 % (37.0-80.0); Platelet Count (auto) 293 10^3/uL (140-450); White Blood Cell 4.7 10^3/uL (4.4-10.8)
[2019-06-10 08:35] LABS: Albumin 3.6 g/dL (3.4-5.0); BUN/Creatinine Ratio 34.6; Potassium 4.1 mmol/L (3.5-5.1)
[2019-06-10 08:38] LABS: Bilirubin, Total 0.4 mg/dL (0.2-1.0)
[2019-06-10 08:59] LABS: Red Cell Distribution Width 24.5 % (11.8-14.3)
[2019-06-10 09:41] LABS: Lipase 174 U/L (73-393)
[2019-06-10 10:26] LABS: Urine Bacteria FEW /hpf (None Seen); Urine Blood Negative /uL (Negative); Urine Specific Gravity 1.017 (1.001-1.035); Urine WBC 1 /hpf (0 - 3)
[2019-06-10 10:39] LABS: Alcohol, Urine < 3.0 mg/dL (0-5); Amphetamine Screen, Urine POSITIVE (NEGATIVE); Barbiturate Scree,Urine NEGATIVE (NEGATIVE); Benzodiazephine Screen, Urine NEGATIVE (NEGATIVE); Cannabinoid Screen, Urine NEGATIVE (NEGATIVE); Cocaine Screen, Urine NEGATIVE (NEGATIVE); Opiate Scree,Urine NEGATIVE (NEGATIVE); Phencyclidine Screen, Urine NEGATIVE (NEGATIVE)
[2019-06-10 11:52] VITALS: BP 125/83
== END 2019-06-10 12:30 | disposition home or self-care (01) ==
LOC: ER 07:35
DX: K29.70 Gastritis, unspecified, without bleeding (principal); E11.9 Type 2 diabetes mellitus without complications; K21.9 Gastro-esophageal reflux disease without esophagitis; I10 Essential (primary) hypertension; Z90.49 Acquired absence of other specified parts of digestive tract; Z87.11 Personal history of peptic ulcer disease; Z79.899 Other long term (current) drug therapy
CPT/HCPCS: 36415; 80053; 80307; 81001; 83690; 84484; 85025; 86677; 93005; 96361; 96365; 96366; 99284; J3490; J7030

== ENCOUNTER 2019-06-18 07:18 | Emergency (ER) | payer OTHER, MEDICAID ==
[~2019-06-18] VITALS: Ht 172.7 cm; Wt 86.2 kg
[2019-06-18 07:35] VITALS: BP 141/87
[2019-06-18] MEDS ORDERED: ALUM & MAG HYDROX-SIMETH LIQ(MAALOX) 30 ML PO ONE (08:45)
[2019-06-18] MEDS ORDERED: LIDOCAINE VISCOUS 2% 15ML UD PO ONE (08:45)
[2019-06-18] MEDS ORDERED: DONNATAL 5ml ORAL Elix (BELLADONNA ALK-PHENOBARB) PO ONE (08:45)
== END 2019-06-18 09:04 | disposition home or self-care (01) ==
LOC: ER 07:22
DX: R10.9 Unspecified abdominal pain (principal); E11.9 Type 2 diabetes mellitus without complications; K21.9 Gastro-esophageal reflux disease without esophagitis; I10 Essential (primary) hypertension; Z76.0 Encounter for issue of repeat prescription; Z90.49 Acquired absence of other specified parts of digestive tract; Z87.11 Personal history of peptic ulcer disease; Z79.899 Other long term (current) drug therapy

== ENCOUNTER 2019-08-18 10:40 | Emergency (ER) | payer OTHER, MEDICAID ==
[~2019-08-18] VITALS: Ht 172.7 cm; Wt 90.7 kg
[2019-08-18] MEDS ORDERED: ALUM & MAG HYDROX-SIMETH LIQ(MAALOX) 30 ML PO ONE (11:00)
[2019-08-18 11:19] VITALS: BP 156/75
== END 2019-08-18 14:47 | disposition home or self-care (01) ==
LOC: ER 10:48
DX: K21.9 Gastro-esophageal reflux disease without esophagitis (principal); F32.9 Major depressive disorder, single episode, unspecified; E11.9 Type 2 diabetes mellitus without complications; I10 Essential (primary) hypertension; Z79.899 Other long term (current) drug therapy

== ENCOUNTER 2019-12-05 18:38 | Emergency (ER) | payer OTHER, MEDICAID ==
[~2019-12-05] VITALS: Ht 172.7 cm; Wt 84.8 kg
[~2019-12-05 18:38] MED LIST changes: -ALPR-229; +ALPR2TAB6
[2019-12-05 18:46] VITALS: BP 148/91
[2019-12-05] MEDS ORDERED: PANTOPRAZOLE 40 MG/10 ML VIAL INJ IV STA (18:53)
[2019-12-05] MEDS ORDERED: ONDANSETRON HCL 4 MG/2 ML VIAL IV ONE (19:00)
[2019-12-05] MEDS ORDERED: MORPHINE SULFATE 4 MG/ML SYR/VIAL IV ONE (19:00)
[2019-12-05 19:35] LABS: Basophils # (auto) 0.1 uL; Eosinophils # (auto) 0 uL; Hemoglobin 8.3 g/dL (13.5-17.5); Monocytes # (auto) 0.5 uL
[2019-12-05 19:36] LABS: Eosinophils % (auto) 0.5 % (0.0-7.0); Mean Corpuscular Hemoglobin 19.4 pg (28.0-32.0); Mean Corpuscular Hgb Conc. 30.6 g/dL (32.0-36.0); Mean Corpuscular Volume 63.3 fL (80.0-100.0); Monocytes % (auto) 8.6 % (0.0-12.0); Neutrophils # (auto) 4.7 uL; Neutrophils % (auto) 73.9 % (37.0-80.0); Platelet Count (auto) 323 10^3/uL (140-450); Red Blood Cells 4.27 10^6/uL (4.5-5.90); White Blood Cell 6.3 10^3/uL (4.4-10.8)
[2019-12-05 19:38] LABS: Red Cell Distribution Width 22.5 % (11.8-14.3)
[2019-12-05 19:46] LABS: Calcium 9.2 mg/dL (8.5-10.1); Potassium 3.6 mmol/L (3.5-5.1)
[2019-12-05 19:50] LABS: BUN/Creatinine Ratio 29.7; Bilirubin, Total 0.5 mg/dL (0.2-1.0); Total Protein 7.5 g/dL (6.4-8.2)
== END 2019-12-06 00:12 | disposition left against medical advice (07) ==
LOC: EDBD 18:38 → ER 18:44
DX: K31.1 Adult hypertrophic pyloric stenosis (principal); D64.9 Anemia, unspecified; E11.9 Type 2 diabetes mellitus without complications; K21.9 Gastro-esophageal reflux disease without esophagitis; I10 Essential (primary) hypertension
CPT/HCPCS: 36415; 74176; 80053; 83690; 85025

== ENCOUNTER → 2019-12-29 | Emergency (ER) | payer OTHER, MEDICAID ==
[~2019-12-29] VITALS: Ht 172.7 cm; Wt 85.7 kg
[~2019-12-29] MED LIST changes: +DIPHENOXYLATE W/ATROPINE 2.5 MG TAB PO ONE; +traMADol HCL 50 MG TAB PO ONE
[2019-12-29 11:21] VITALS: BP 151/80
== END | disposition home or self-care (01) ==
LOC: ER 11:10
DX: R19.7 Diarrhea, unspecified (principal); R10.30 Lower abdominal pain, unspecified; E11.9 Type 2 diabetes mellitus without complications; K21.9 Gastro-esophageal reflux disease without esophagitis; I10 Essential (primary) hypertension
CPT/HCPCS: 82962

== ENCOUNTER 2020-05-05 12:11 | Emergency (ER) | payer OTHER, MEDICAID ==
[~2020-05-05] VITALS: Ht 172.7 cm; Wt 85.7 kg
[~2020-05-05 12:11] MED LIST changes: -DIPHENOXYLATE W/ATROPINE 2.5 MG TAB PO ONE; -traMADol HCL 50 MG TAB PO ONE
[2020-05-05 12:24] VITALS: BP 138/87
== END 2020-05-05 13:00 | disposition left against medical advice (07) ==
LOC: ER 12:11
DX: R10.9 Unspecified abdominal pain (principal); Z53.21 Procedure and treatment not carried out due to patient leaving prior to being seen by health care provider
CPT/HCPCS: 82962

== ENCOUNTER 2020-05-12 13:53 | Emergency (ER) | payer OTHER, MEDICAID ==
[~2020-05-12] VITALS: Ht 172.7 cm; Wt 86.2 kg
[2020-05-12 14:36] VITALS: BP 135/77
[2020-05-12] MEDS ORDERED: FAMOTIDINE 20 MG TAB PO ONE (15:00)
[2020-05-12] MEDS ORDERED: LIDOCAINE VISCOUS 2% 15ML UD PO ONE (15:00)
[2020-05-12] MEDS ORDERED: ALUM & MAG HYDROX-SIMETH LIQ(MAALOX) 30 ML PO ONE (15:00)
[2020-05-12] MEDS ORDERED: DONNATAL 5ml ORAL Elix (BELLADONNA ALK-PHENOBARB) PO ONE (15:00)
== END 2020-05-12 16:14 | disposition home or self-care (01) ==
LOC: ER 13:53
DX: R10.13 Epigastric pain (principal); K21.9 Gastro-esophageal reflux disease without esophagitis; E11.9 Type 2 diabetes mellitus without complications; I10 Essential (primary) hypertension; Z87.442 Personal history of urinary calculi; Z90.49 Acquired absence of other specified parts of digestive tract
CPT/HCPCS: 82962; 93005

== ENCOUNTER 2020-08-07 10:51 | Emergency (ER) | payer OTHER, MEDICAID ==
[~2020-08-07] VITALS: Ht 162.6 cm; Wt 86.2 kg
[2020-08-07 11:17] VITALS: BP 167/94
== END 2020-08-07 13:50 | disposition left against medical advice (07) ==
LOC: ER 10:51
DX: M25.511 Pain in right shoulder (principal); F15.10 Other stimulant abuse, uncomplicated; K42.9 Umbilical hernia without obstruction or gangrene; Z53.21 Procedure and treatment not carried out due to patient leaving prior to being seen by health care provider
CPT/HCPCS: 73030

== ENCOUNTER 2020-09-09 10:13 | Inpatient (IN) | payer OTHER, MEDICAID ==
[~2020-09-09] VITALS: Ht 172.7 cm; Wt 89.4 kg
[2020-09-09 10:30] VITALS: BP 144/98
[2020-09-09 11:45] LABS: Basophils # (auto) 0.1 10 ^3/uL (0-0.2); Eosinophils # (auto) 0.2 10 ^3/uL (0-0.8); Lymphocytes # (auto) 1.5 10 ^3/uL (0.4-5.4); Monocytes # (auto) 0.6 10 ^3/uL (0-1.3); Nucleated Red Blood Cells % 0.1 %
[2020-09-09 11:47] LABS: Eosinophils % (auto) 2.4 % (0.0-7.0); Hematocrit 42.3 % (41.0-53.0); Lymphocytes % (auto) 20.6 % (10.0-50.0); Mean Corpuscular Hemoglobin 25.2 pg (28.0-32.0); Mean Corpuscular Hgb Conc. 33.1 g/dL (32.0-36.0); Neutrophils # (auto) 4.8 10 ^3/uL (1.6-8.6); Platelet Count (auto) 294 10^3/uL (140-450); Red Blood Cells 5.57 10^6/uL (4.5-5.90); White Blood Cell 7.1 10^3/uL (4.4-10.8)
[2020-09-09 11:48] LABS: Red Cell Distribution Width 20.3 % (11.8-14.3)
[2020-09-09 12:28] LABS: Albumin 4.3 g/dL (3.4-5.0); Anion Gap 4 (5-15); Aspartate Aminotransferase 18 U/L (15-37); Blood Urea Nitrogen 32 mg/dL (7-18); Calcium 9.4 mg/dL (8.5-10.1); Carbon Dioxide 29 mmol/L (21-32); Chloride 104 mmol/L (98-107); Glucose 99 mg/dL (74-106); Lipase 131 U/L (73-393); Potassium 4.5 mmol/L (3.5-5.1); Sodium 137 mmol/L (136-145)
[2020-09-09 12:46] LABS: Alanine Aminotransferase 27 U/L (16-61); Alkaline Phosphatase 111 U/L (45-117); BUN/Creatinine Ratio 29.6; Bilirubin, Total 0.4 mg/dL (0.2-1.0); GFR African American 93 mL/min; GFR Non-African American 77 mL/min; Total Protein 8.2 g/dL (6.4-8.2)
[2020-09-09] MEDS ORDERED: ACETAMINOPHEN 325 MG TAB PO PRN (16:45)
[2020-09-09] MEDS ORDERED: SODIUM CHLORIDE 0.9% 1,000 ML IV SCH (16:45)
[2020-09-09] MEDS ORDERED: ONDANSETRON HCL 4 MG/2 ML VIAL IV PRN (16:45)
[2020-09-09] MEDS ORDERED: LORazepam 0.5 MG TAB PO PRN (16:45)
[2020-09-09] MEDS ORDERED: DOCUSATE SOD 100 MG CAP PO PRN (16:45)
[2020-09-09] MEDS ORDERED: HYDROcodone-ACET 5/325MG TAB PO PRN (16:45)
[2020-09-09] MEDS ORDERED: ALUM & MAG HYDROX-SIMETH LIQ(MAALOX) 30 ML PO PRN (16:45)
[2020-09-09] MEDS ORDERED: TEMAZEPAM 15 MG CAP PO PRN (16:45)
[2020-09-09] MEDS ORDERED: MORPHINE SULF INJ 2 MG/ML SYRINGE 1ML IV PRN (16:45)
[2020-09-09] MEDS ORDERED: PIPERACILLIN-TAZOB 2.25GM 50 ML IV ONE (17:30)
[2020-09-09] MEDS ORDERED: SODIUM CHLORIDE 0.9% 1,000 ML IV ONE ×2 (17:30)
[2020-09-09] MEDS ORDERED: PANTOPRAZOLE 40 MG/10 ML VIAL INJ IV ONE (17:30)
[2020-09-09] MEDS ORDERED: PANTOPRAZOLE 40 MG/10 ML VIAL INJ IV SCH (22:00)
== END 2020-09-09 20:26 | disposition left against medical advice (07) | DRG 382 ==
LOC: ER 10:13 → OVERFLOW 16:39
PROVIDERS: ADMIT Hospitalist; ATTEND Hospitalist
DX: K31.1 Adult hypertrophic pyloric stenosis (principal); K29.00 Acute gastritis without bleeding; K46.9 Unspecified abdominal hernia without obstruction or gangrene; Z53.29 Procedure and treatment not carried out because of patient's decision for other reasons; E11.9 Type 2 diabetes mellitus without complications; F41.9 Anxiety disorder, unspecified; I10 Essential (primary) hypertension; Z87.11 Personal history of peptic ulcer disease; Z87.442 Personal history of urinary calculi
CPT/HCPCS: 36415; 74176; 80053; 83690; 84484; 85025; G0378

== ENCOUNTER 2020-10-03 09:55 | Emergency (ER) | payer OTHER, MEDICAID ==
[~2020-10-03] VITALS: Ht 172.7 cm; Wt 89.8 kg
[2020-10-03 10:12] VITALS: BP 174/99
== END 2020-10-03 12:08 | disposition left against medical advice (07) ==
LOC: ER 09:55
DX: R10.9 Unspecified abdominal pain (principal); M54.5 Low back pain; Z76.0 Encounter for issue of repeat prescription; I10 Essential (primary) hypertension; E11.9 Type 2 diabetes mellitus without complications; F41.9 Anxiety disorder, unspecified; F32.9 Major depressive disorder, single episode, unspecified; K21.9 Gastro-esophageal reflux disease without esophagitis; Z87.11 Personal history of peptic ulcer disease; Z87.442 Personal history of urinary calculi; Z86.2 Personal history of diseases of the blood and blood-forming organs and certain disorders involving the immune mechanism; Z90.49 Acquired absence of other specified parts of digestive tract; Z79.899 Other long term (current) drug therapy
CPT/HCPCS: 81002

== ENCOUNTER 2021-09-11 09:02 | Emergency (ER) | payer BC, MEDICAID, OTHER ==
[~2021-09-11] VITALS: Ht 172.7 cm; Wt 99.8 kg
[~2021-09-11 09:02] MED LIST changes: -CLON-707; +CLON-857; -LISI-646; +LISI20TA28; +METH10TA2; -METH10TA97
[2021-09-11 10:14] VITALS: BP 154/90
[2021-09-11] MEDS ORDERED: PRED20TA2 PO (10:20)
[2021-09-11] MEDS ORDERED: methylPREDNISolone SOD SUCC 125 MG/2 ML VL IM ONE (10:30)
== END 2021-09-11 10:59 | disposition home or self-care (01) ==
LOC: ER 09:02
DX: G89.29 Other chronic pain (principal); M54.50 Low back pain, unspecified; I10 Essential (primary) hypertension; E11.9 Type 2 diabetes mellitus without complications; K21.9 Gastro-esophageal reflux disease without esophagitis; Z90.49 Acquired absence of other specified parts of digestive tract; Z90.89 Acquired absence of other organs; Z79.899 Other long term (current) drug therapy
CPT/HCPCS: 96372; 99283; J2930

== ENCOUNTER 2021-09-21 10:31 | Emergency (ER) | payer BC ==
[~2021-09-21] VITALS: Ht 172.7 cm; Wt 99.8 kg
[~2021-09-21 10:31] MED LIST changes: +PRED20TA2 PO
[2021-09-21 11:00] VITALS: BP 150/90
[2021-09-21] MEDS ORDERED: methylPREDNISolone SOD SUCC 125 MG/2 ML VL IM ONE (11:00)
== END 2021-09-21 11:21 | disposition home or self-care (01) ==
LOC: ER 10:31
DX: M51.36 Other intervertebral disc degeneration, lumbar region (principal)
CPT/HCPCS: 96372; 99283; J2930

== ENCOUNTER 2024-11-06 13:28 | Inpatient (IN) | payer BC, MEDICAID ==
[~2024-11-06] VITALS: Ht 172.7 cm; Wt 86.6 kg
[~2024-11-06 13:28] MED LIST changes: +CLON-1005; -CLON2TAB; -LISI20TA28; +LISI20TA56; +METH10TA12; -METH10TA2
--- NOTE | 2024-11-06 14:42 | ED.PDOC ---
History of Present Illness(SKN HPI Comments 54 y.o male presents to the ED for an evaluation of a wound check. Patient reports developing a blister to the dorsum side of his foot near the third toe s/p wearing shoes without socks x 2-3 days ago and states today he woke up with red streaks radiating up to his leg. Patient has a medical history of DM, is compliant with medication. No other symptoms reported. Chief Complaint: Lower Extremity Time Seen by MD: 14:17 Primary Care Provider: NONE History of Present Illness: Nurses Notes, Medications, Allergies Allergies: Coded Allergies: NO KNOWN ALLERGIES (Unverified , 04/30/18) Home Meds Active Scripts Prednisone (Prednisone) 20 Mg Tab, 20 MG PO BID for 10 Days, #20 MG Prov:ANNA SANTANA 09/11/21 Reported Medications Omeprazole ([facility] Omeprazole) 20 Mg Tab, 40 MG BID, #30 09/26/13 Sucralfate (Sucralfate) 1 Gm Tab, #120 1 tab before each meal and at bedtime 09/26/13 Hydrocodone-Acetaminophen (Hydrocodone/Acetaminophen) 1 Tab Tab, #20 09/26/13 Alprazolam (Alprazolam) 1 Mg Tab, #35 09/26/13 Sulfamethoxazole W/Trimethopri (Sulfamethoxazole/Trimetho) 1 Tab Tab, #20 09/26/13 Methadone Hcl (Methadone Hcl) 10 Mg Tab, #120 09/18/13 Morphine Sulfate (Morphine Sulfate) 15 Mg Tab, #90 09/18/13 Clonazepam (Clonazepam) 2 Mg Tab, #30 09/18/13 Alprazolam (Alprazolam) 2 Mg Tab, #35 09/18/13 Lisinopril (Lisinopril) 20 Mg Tab, #30 09/18/13 Alprazolam (Xanax) 2 Mg Tab, BID 10/01/12 Clonazepam (Klonopin) 2 Mg Tab, DAILY 10/01/12 Information Source: Patient Mode of Arrival: Ambulatory Severity: Moderate Timing: Days (2-3) Duration: Since onset Location: Foot Mechanism: Spontaneous Onset Object: None Condition of Object: None Wound Type: Unknown Immunization Status of Animal: NA Associated Signs and Symptoms: Redness, Red Streaking Past Medical History PAST MEDICAL HISTORY: Anemia, Anxiety, Depression, DM, GERD, HTN, Kidney Stones, PUD Surgical History: Cholecystectomy, Tonsillectomy Family History Family History: Reviewed,noncontributory to illness, No family hx of HTN Social History Smoker: Non-Smoker Alcohol: Denies ETOH Use Drugs: Denies Drug Use Lives In: Home Constitutional: denies: chills, diaphoresis, fatigue, fever, malaise, sweats, weakness, others EENTM: denies: blurred vision, double vision, ear bleeding, ear discharge, ear drainage, ear pain, ear ringing, eye pain, eye redness, hearing loss, mouth pain, mouth swelling, nasal discharge, nose bleeding, nose congestion, nose pain, photophobia, tearing, throat pain, throat swelling, voice changes, others Respiratory: denies: cough, hemoptysis, orthopnea, SOB at rest, shortness of breath, SOB with excertion, stridor, wheezing, others Cardiovascular: denies: chest pain, dizzy spells, diaphoresis, Dyspnea on exertion, edema, irregular heart beat, left arm pain, lightheadedness, palpitations, PND, syncope, others Gastrointestinal: denies: abdomen distended, abdominal pain, blood streaked bowels, constipated, diarrhea, dysphagia, difficulty swallowing, hematemesis, melena, nausea, poor appetite, poor fluid intake, rectal bleeding, rectal pain, vomiting, others Genitourinary: denies: burning, dysuria, flank pain, frequency, hematuria, incontinence, penile discharge, penile sore, pain, testicle pain, testicle swelling, urgency, others Neurological: denies: dizziness, fainting, headache, left sided numbness, left sided weakness, numbness, paresthesia, pre-existing deficit, right sided numbness, right sided weakness, seizure, speech problems, tingling, tremors, weakness, others Musculoskeletal: denies: back pain, gout, joint pain, joint swelling, muscle pain, muscle stiffness, neck pain, others Integumetry: reports: wounds (left foot blister, erythema and numbness ); denies: bruises, change in color, change in hair/nails, dryness, laceration, lesions, lumps, rash, others Allergic/Immunocompromised: denies: Difficulty Healing, Frequent Infections, Hives, Itching, others Hematologic/Lymphatic: denies: anemia, blood clots, easy bleeding, easy bruising, swollen glands, others Endocrine: denies: excessive hunger, excessive sweating, excessive thirst, excessive urination, flushing, intolerance to cold, intolerance to heat, unexplained weight gain, unexplained weight loss, others Psychiatric: denies: anxiety, bipolar disorder, depression, hopeless, panic disorder, schizophrenia, sleepless, suicidal, others All Other Systems: Reviewed and Negative Physical Exam General Appearance: No Apparent Distress, Normal HEENT: Normal ENT Inspection, Pharynx Normal, TMs Normal Neck: Full Range of Motion, Non-Tender, Normal, Normal Inspection Respiratory: Chest Non-Tender, Lungs Clear, No Accessory Muscle Use, No Respiratory Distress, Normal Breath Sounds Cardiovascular: No Edema, No JVD, No Murmur, No Gallop, Normal Peripheral Pulses, Regular Rate/Rhythm Breast Exam: Deferred Gastrointestinal: No Organomegaly, Non Tender, No Pulsatile Mass, Normal Bowel Sounds, Soft Genitalia: Deferred Pelvic: Deferred Rectal: Deferred Extremities: No calf tenderness, Normal capillary refill, Normal inspection, Normal range of motion, Non-tender, No pedal edema Musculoskeletal : Apperance: Normal Neurologic: Alert, 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 Was a procedure done?: No Differential Diagnosis (INTG) Differential Diagnosis: Cellulitis, Contact Dermatitis, Erythema multiforme Differential Diagnosis: Cellulitis, Puncture Wound X-Ray, Labs, Meds, VS Vital Signs Date Time Temp Pulse Resp B/P (MAP) Pulse Ox O2 Delivery O2 Flow Rate FiO2 11/06/24 13:40 96 20 98 Room Air 11/06/24 13:40 98.8 96 20 133/91 (105) 98 98.8 11/06/24 13:40 98.8 96 20 133/91 (105) 98 Lab Test 11/06/24 15:32 Range/Units White Blood Count 8.1 4.4-10.8 10^3/uL Red Blood Count 5.01 4.5-5.90 10^6/uL Hemoglobin 14.6 13.5-17.5 g/dL Hematocrit 43.2 41.0-53.0 % Mean Corpuscular Volume 86.1 80.0-100.0 fL Mean Corpuscular Hemoglobin 29.2 28.0-32.0 pg Mean Corpuscular Hemoglobin Concent 33.9 32.0-36.0 g/dL Red Cell Distribution Width 13.5 11.8-14.3 % Platelet Count 323 140-450 10^3/uL Mean Platelet Volume 8.3 6.9-10.8 fL Neutrophils (%) (Auto) 72.9 37.0-80.0 % Lymphocytes (%) (Auto) 18.5 10.0-50.0 % Monocytes (%) (Auto) 6.7 0.0-12.0 % Eosinophils (%) (Auto) 1.3 0.0-7.0 % Basophils (%) (Auto) 0.6 0.0-2.0 % Neutrophils # (Auto) 5.9 1.6-8.6 10 ^3/uL Lymphocytes # (Auto) 1.5 0.4-5.4 10 ^3/uL Monocytes # (Auto) 0.5 0-1.3 10 ^3/uL Eosinophils # (Auto) 0.1 0-0.8 10 ^3/uL Basophils # (Auto) 0.1 0-0.2 10 ^3/uL Nucleated Red Blood Cells 0.1 % Sodium Level 141 136-145 mmol/L Potassium Level 4.0 3.5-5.1 mmol/L Chloride Level 109 H 98-107 mmol/L Carbon Dioxide Level 25 20-31 mmol/L Anion Gap 7 5-15 Blood Urea Nitrogen 33 H 9-23 mg/dL Creatinine 1.14 0.700-1.30 mg/dL Glomerular Filtration Rate Calc 76 >90 mL/min BUN/Creatinine Ratio 28.9 H 10.0-20.0 Serum Glucose 112 H 74-106 mg/dL Lactic Acid Level 1.3 0.4-2.0 mmol/L Calcium Level 10.2 8.7-10.4 mg/dL Total Bilirubin 0.5 0.2-1.0 mg/dL Aspartate Amino Transferase (AST) 20 13-40 U/L Alanine Aminotransferase (ALT) 24 7-40 U/L Alkaline Phosphatase 121 H 46-116 U/L Total Protein 7.2 5.7-8.2 g/dL Albumin 4.6 3.2-4.8 g/dL ULTRASOUND OF SCROTUM AND CONTENTS. INDICATION: hx of testicular lesion COMPARISON: None TECHNIQUE: Multiple real-time grayscale sonographic and color and duplex Doppler images of the scrotum and its contents were obtained. FINDINGS: RIGHT TESTICLE: Measures 3.7 x 2.9 x 3.1 cm. Right epididymis measures 11.3 mm A hydrocele in the right. LEFT TESTICLE: Measures 4.4 by 2.7 x 2.9 cm. Left epididymis measures 15.1 mm there is a anechoic lesion consistent with a cyst measuring 4.5 x 2.6 x 5.2 mm. Left-sided hydrocele IMPRESSION: 1. No evidence of torsion, epididymitis, and/or orchitis. 2. Bilateral hydrocele. 3. Small left epididymal cyst. X-Ray, Labs, Meds, VS Comment 54-year-old male presents secondary to complaints. First complaint is a requested to have his scrotum ultrasound. He was supposed to have his scrotum ultrasound dated proximal 1 year ago. However, his physician . Patient has been concerned but able to follow up. Here, his ultrasound did not show any acute pathology. He was also complaining of a 1 day history of lesion to the dorsal aspect of his foot with tracking. His white count and lactic acid were normal. The patient, however, will be admitted for thrombophlebitis and cellulitis. I am concerned the patient may be immunosuppressed secondary to diabetes. Initially, he was high risk for loss of his foot. Time of 1ST Reevaluation: 14:36 Reevaluation 1ST: Unchanged Patient Education/Counseling: Diagnosis, Treatment, Prognosis Family Education/Counseling: No Family Present Departure 1 Departure Time of Disposition: 16:34 Impression: Primary Impression: Thrombophlebitis Additional Impressions: Cellulitis Diabetes Disposition: 01 HOME / SELF CARE / HOMELESS Condition: Serious Critical Care Note Critical Care Time?: No Stability Stability form required: No I personally scribed for JACQUI SUÁREZ MD ([email or web address]) on 11/06/24 at 14:42. Electronically submitted by Sushila Islas ([facility]). I personally scribed for JACQUI SUÁREZ MD ([email or web address]) on 11/06/24 at 15:34. Electronically submitted by Sushila Islas ([facility]). JACQUI SUÁREZ MD Nov 06, 2024 14:42
--- NOTE | 2024-11-06 15:23 | DVH ---
ULTRASOUND OF SCROTUM AND CONTENTS. INDICATION: hx of testicular lesion COMPARISON: None TECHNIQUE: Multiple real-time grayscale sonographic and color and duplex Doppler images of the scrotu m and its contents were obtained. FINDINGS: RIGHT TESTICLE: Measures 3.7 x 2.9 x 3.1 cm. Right epididymis measures 11.3 mm A hydrocele in the right. LEFT TESTICLE: Measures 4.4 by 2.7 x 2.9 cm. Left epididymis measures 15.1 mm there is a anechoic lesion consistent with a cyst measuring 4.5 x 2. 6 x 5.2 mm. Left-sided hydrocele IMPRESSION: 1. No evidence of torsion, epididymitis, and/or orchitis. 2. Bilateral hydrocele. 3. Small left epididymal cyst. HS:Y
[2024-11-06 15:44] LABS: Basophils # (auto) 0.1 10 ^3/uL (0-0.2); Basophils % (auto) 0.6 % (0.0-2.0); Eosinophils # (auto) 0.1 10 ^3/uL (0-0.8); Eosinophils % (auto) 1.3 % (0.0-7.0); Hematocrit 43.2 % (41.0-53.0); Hemoglobin 14.6 g/dL (13.5-17.5); Lymphocytes # (auto) 1.5 10 ^3/uL (0.4-5.4); Lymphocytes % (auto) 18.5 % (10.0-50.0); Mean Corpuscular Hemoglobin 29.2 pg (28.0-32.0); Mean Corpuscular Hgb Conc. 33.9 g/dL (32.0-36.0); Mean Corpuscular Volume 86.1 fL (80.0-100.0); Monocytes # (auto) 0.5 10 ^3/uL (0-1.3); Monocytes % (auto) 6.7 % (0.0-12.0); Neutrophils # (auto) 5.9 10 ^3/uL (1.6-8.6); Neutrophils % (auto) 72.9 % (37.0-80.0); Nucleated Red Blood Cells % 0.1 %; Platelet Count (auto) 323 10^3/uL (140-450); Red Blood Cells 5.01 10^6/uL (4.5-5.90); Red Cell Distribution Width 13.5 % (11.8-14.3); White Blood Cell 8.1 10^3/uL (4.4-10.8)
[2024-11-06 15:59] LABS: Alanine Aminotransferase 24 U/L (7-40); Albumin 4.6 g/dL (3.2-4.8); Anion Gap 7 (5-15); Aspartate Aminotransferase 20 U/L (13-40); BUN/Creatinine Ratio 28.9 (10.0-20.0); Calcium 10.2 mg/dL (8.7-10.4); Carbon Dioxide 25 mmol/L (20-31); Sodium 141 mmol/L (136-145)
[2024-11-06 16:00] LABS: Bilirubin, Total 0.5 mg/dL (0.2-1.0); Total Protein 7.2 g/dL (5.7-8.2)
[2024-11-06 16:01] LABS: Alkaline Phosphatase 121 U/L (46-116); Blood Urea Nitrogen 33 mg/dL (9-23); Chloride 109 mmol/L (98-107); Glucose 112 mg/dL (74-106)
[2024-11-06 19:45] VITALS: PULSE 90; RESP 16; O2SAT 98
--- NOTE | 2024-11-06 20:33 | DVH ---
EXAM: US BILAT LOWER DVT Clinical History: R/O DVT Comparison: None Technique: Duplex Doppler evaluation of the deep venous systems of both lower extremities from the common femora l veins to the popliteal veins including color Doppler and spectral/pulsed waveform analysis was perf ormed. Findings: No visible intraluminal venous thrombus. No evidence of incompressibility or abnormal color or spectr al Doppler flow visualized in the deep bilateral lower extremity veins. Proximal greater saphenous ve ins are grossly unremarkable. Impression: 1. No sonographic evidence of deep venous thrombosis throughout the bilateral lower extremities from the popliteal veins to the common femoral veins.
--- NOTE | 2024-11-06 20:36 | DVH ---
Left Lower Extremity Arterial Duplex Clinical History: edema Comparison: None Technique: Duplex Doppler evaluation including color Doppler and spectral/pulsed waveform analysis of the lower extremity arteries was performed. 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 IMPRESSION: 1. No hemodynamically significant stenosis based on peak systolic velocity criteria. REFERENCE VALUES, [facility] ([facility]) vascular Imaging Lab Criteria: Peak systolic velocity ranges (in cm/sec) are as follows: <150 cm/s - <20 % stenosis 150-200 cm/s - 20-49% stenosis 200-300 cm/s - 50-75% stenosis >300 cm/s -> 75% stenosis
[2024-11-06] MEDS ORDERED: VANCOMYCIN PER PHARMACY 0 MG IV SCH (21:15)
[2024-11-06] MEDS ORDERED: ONDANSETRON HCL 4 MG/2 ML VIAL IV PRN (21:15)
[2024-11-06] MEDS ORDERED: ACETAMINOPHEN 325 MG TAB PO PRN (21:15)
[2024-11-06] MEDS: VANCOMYCIN 1GM/250ML KIT 250 ML IV ONE ×2 (21:19→22:02)
[2024-11-06] MEDS: HYDROcodone-ACET 5/325MG TAB PO PRN (21:24)
[2024-11-06] MEDS ORDERED: MELATONIN 5 MG TAB PO PRN (22:00)
[2024-11-06] MEDS: FAMOTIDINE 20 MG TAB PO SCH (22:03)
[2024-11-06 23:00] VITALS: PULSE 74; O2SAT 97
[2024-11-06 23:54] VITALS: BP 150/90; PULSE 74; RESP 16; TEMP 97.6; O2SAT 97
[2024-11-07] VITALS (8 sets, daily range): BP systolic 141–163; BP diastolic 78–98; PULSE 68–81; RESP 16–20; TEMP 97.2–98.7; O2SAT 96–99
[2024-11-07] MEDS: cefTRIAXone 1GM/50ML D5W 50 ML IV SCH (00:26)
--- NOTE | 2024-11-07 00:41 | DVHHP2 ---
Admitting Diagnosis: left foot cellulitis History of Present Illness History Source: Patient Exam Limitations: No limitations HPI Mr. Isreal Gee is a 54 y.o male with a history of DM who presents with a chief complaint of left foot swelling , pain and blister . Patient reports d eveloping a blister to the dorsum side of his foot near the third toe s/p wearing shoes without socks x 2-3 days ago and states today he woke up with red streaks radiating up to his leg. Patient reports swelling with redness, numbness to left foot with blister that is not improving. Patient reports he has not taken his home medications for a "while now". Patient admitted for further evaluation. Home Meds Active Scripts Prednisone (Prednisone) 20 Mg Tab, 20 MG PO BID for 10 Days, #20 MG Prov:ANNA SANTANA 09/11/21 Reported Medications Omeprazole ([facility] Omeprazole) 20 Mg Tab, 40 MG BID, #30 09/26/13 Sucralfate (Sucralfate) 1 Gm Tab, #120 1 tab before each meal and at bedtime 09/26/13 Hydrocodone-Acetaminophen (Hydrocodone/Acetaminophen) 1 Tab Tab, #20 09/26/13 Alprazolam (Alprazolam) 1 Mg Tab, #35 09/26/13 Sulfamethoxazole W/Trimethopri (Sulfamethoxazole/Trimetho) 1 Tab Tab, #20 09/26/13 Methadone Hcl (Methadone Hcl) 10 Mg Tab, #120 09/18/13 Morphine Sulfate (Morphine Sulfate) 15 Mg Tab, #90 09/18/13 Lisinopril (Lisinopril) 20 Mg Tab, #30 09/18/13 Alprazolam (Xanax) 2 Mg Tab, BID 10/01/12 Clonazepam (Klonopin) 2 Mg Tab, DAILY 10/01/12 Discontinued Reported Medications Clonazepam (Clonazepam) 2 Mg Tab, #30 09/18/13 Alprazolam (Alprazolam) 2 Mg Tab, #35 09/18/13 Past Medical History Cardiac: HTN Pulmonary: No pertinent Hx Central Nervous System: No pertinent Hx GI: No pertinent Hx Hemotology/Oncology: No pertinent Hx Hepatobiliary: No pertinent Hx Psychiatric: No pertinent Hx Musculoskeletal: No pertinent Hx Rheumotologic: No pertinent Hx Infectious Disease: No peritnent Hx ENT: No pertinent Hx Renal/: No pertinent Hx Endocrine: NIDDM Dermatology: No pertinent Hx Patient Family History: FH: cirrhosis G8 FATHER Smoker: No Hx (Negative) Alocohol: None Drugs: None Lives with: With family Domestic Violence: Neg Review of Systems Constitutional: No symptom reported Ears, Nose, & Throat: No symptom reported Eyes: No symptom reported Pulmonary/Respiratory: No symptom reported Cardiovascular: No symptom reported Gastrointestinal: No symptom reported Genitourinary: No symptom reported Musculoskeletal: Foot pain (right foot pain, swelling, redness and numbness) Skin: No symptom reported Psychiatric: No symptom reported Endocrine: No symptom reported Hemotologic/Lymphatic: No symptom reported H&P Exam Vital Signs Vital Signs Date Time Temp Pulse Resp B/P (MAP) Pulse Ox O2 Delivery O2 Flow Rate FiO2 11/06/24 23:54 97.6 74 16 150/90 (110) 97 97.6 11/06/24 19:45 Room Air* 0 21 General Appeara: Well developed, Well nourished, Normal Appearance Head Exam: Normal inspection Neck Exam: Normal inspection, Non-tender, Normal alignment Eye Exam: bilateral eye Normal inspection, bilateral eye PERRL, bilateral eye EOMI Ear Exam: bilateral ear Auricle normal Nasal Exam: Normal inspection Mouth: Normal Inspection Pulmonary/Respiratory: Normal inspection, Normal breath sounds, Chest non- tender Cardiovascular/Chest: Normal inspection, Regular rate, Normal Rhythm Peripheral Pulses: 2+ dorsalis pedis (R), 2+ dorsalis pedis (L), 2+ Radial (R), 2+ Radial (L) Abdominal Exam: Normal bowel sounds, Soft, No tenderness Pelvic Exam: Not done Legs: bilateral leg non-tender, bilateral leg normal inspection, bilateral leg normal range of motion Knees: bilateral knee non-tender, bilateral knee normal inspection, bilateral knee normal range of motion Foot: left foot non-tender, left foot normal inspection, left foot normal range of motion, left foot no evidence of injury; right foot limited range of motion, right foot pain, right foot soft tissue tenderness, right foot swelling, right foot other (blister ) Tendon/ Neuro: Normal sensation, 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, Normal speech, PERRL Motor/Sensory: Normal sensory function, Normal motor function Neuro/Mental St: Alert, Oriented Appearance: Appropriate insight, Disheveled Eye contact/ Speech: Cooperative, Good eye contact, Normal speech Thoughts/Psych: Normal thought pattern Skin Exam: Normal inspection, Warm/dry, Other (right foot blister, erythema, edema) Wounds right foot blister Labs/Xrays Labs Test 11/06/24 15:32 Range/Units White Blood Count 8.1 4.4-10.8 10^3/uL Red Blood Count 5.01 4.5-5.90 10^6/uL Hemoglobin 14.6 13.5-17.5 g/dL Hematocrit 43.2 41.0-53.0 % Mean Corpuscular Volume 86.1 80.0-100.0 fL Mean Corpuscular Hemoglobin 29.2 28.0-32.0 pg Mean Corpuscular Hemoglobin Concent 33.9 32.0-36.0 g/dL Red Cell Distribution Width 13.5 11.8-14.3 % Platelet Count 323 140-450 10^3/uL Mean Platelet Volume 8.3 6.9-10.8 fL Neutrophils (%) (Auto) 72.9 37.0-80.0 % Lymphocytes (%) (Auto) 18.5 10.0-50.0 % Monocytes (%) (Auto) 6.7 0.0-12.0 % Eosinophils (%) (Auto) 1.3 0.0-7.0 % Basophils (%) (Auto) 0.6 0.0-2.0 % Neutrophils # (Auto) 5.9 1.6-8.6 10 ^3/uL Lymphocytes # (Auto) 1.5 0.4-5.4 10 ^3/uL Monocytes # (Auto) 0.5 0-1.3 10 ^3/uL Eosinophils # (Auto) 0.1 0-0.8 10 ^3/uL Basophils # (Auto) 0.1 0-0.2 10 ^3/uL Nucleated Red Blood Cells 0.1 % Sodium Level 141 136-145 mmol/L Potassium Level 4.0 3.5-5.1 mmol/L Chloride Level 109 H 98-107 mmol/L Carbon Dioxide Level 25 20-31 mmol/L Anion Gap 7 5-15 Blood Urea Nitrogen 33 H 9-23 mg/dL Creatinine 1.14 0.700-1.30 mg/dL Glomerular Filtration Rate Calc 76 >90 mL/min BUN/Creatinine Ratio 28.9 H 10.0-20.0 Serum Glucose 112 H 74-106 mg/dL Lactic Acid Level 1.3 0.4-2.0 mmol/L Calcium Level 10.2 8.7-10.4 mg/dL Total Bilirubin 0.5 0.2-1.0 mg/dL Aspartate Amino Transferase (AST) 20 13-40 U/L Alanine Aminotransferase (ALT) 24 7-40 U/L Alkaline Phosphatase 121 H 46-116 U/L Total Protein 7.2 5.7-8.2 g/dL Albumin 4.6 3.2-4.8 g/dL Assessment/Plan Problem List: (1) Cellulitis Plan This is a 54 yo male with known past history of DM who presents with left foot pain, swelling, with erythema. Patient found to have 1. left foot cellulitis Plan: Admit Med surgical unit IV antibiotics Vancomycin , Ceftriaxone Social service consultation GI ppx Pepcid DVT ppx Lovenox Glucose monitoring ac & hs coverage with insulin sliding scale Discussed all above with patient who verbalizes agreement and understanding of care plan. All questions were answered. Discussed assessment and care plan with supervising MD. Plan discussed with: Patient, Other Code Visit Code Visit Total Time (mins): 45 Additional Comments Additional Comments Additional Comments Patient was seen and evaluated by me. I agree with the assessment and plan as outlined by my nurse practitioner. ARABELLA DALY Nov 07, 2024 00:41 CHANCE REYNOSO MD Nov 08, 2024 16:13
[2024-11-07] MEDS ORDERED: DEXTROSE (50%) 50ML SYRG IV PRN (00:45)
[2024-11-07] MEDS: MELATONIN 5 MG TAB PO PRN (01:43)
[2024-11-07] MEDS: InsuLIN REG 1unit/0.01ml Soln (100units/ml) SC SCH (06:28)
[2024-11-07] MEDS: ACCU-CHEK COMFORT CURVE STRIP VI SCH (06:28)
[2024-11-07] MEDS: ENOXAPARIN SOD 40 MG/0.4 ML SYRINGE SC SCH (09:12)
[2024-11-07 11:20] LABS: Hepatitis B Surface Antigen Negative (Negative)
[2024-11-07 11:52] LABS: Hepatitis C Antibody Negative (Negative)
[2024-11-07] MEDS: VANCOMYCIN 1GM/250ML KIT 250 ML IV SCH (14:51)
[2024-11-07] MEDS ORDERED: MELATONIN 5 MG TAB PO SCH (22:00)
[2024-11-08 01:11] VITALS: BP 150/87; PULSE 78; RESP 16; TEMP 98; O2SAT 96
[2024-11-08 05:00] VITALS: BP 166/101; PULSE 78; RESP 18; TEMP 98.3; O2SAT 96
[2024-11-08] MEDS: KETOROLAC TROMETH 30 MG/ML 1ML VIAL IV ONE (05:10)
[2024-11-08 05:54] LABS: Basophils # (auto) 0.1 10 ^3/uL (0-0.2); Basophils % (auto) 1.6 % (0.0-2.0); Eosinophils # (auto) 0.2 10 ^3/uL (0-0.8); Hemoglobin 13.8 g/dL (13.5-17.5); Lymphocytes # (auto) 1.6 10 ^3/uL (0.4-5.4); Lymphocytes % (auto) 27.5 % (10.0-50.0); Mean Corpuscular Hemoglobin 29.2 pg (28.0-32.0); Mean Corpuscular Hgb Conc. 33.6 g/dL (32.0-36.0); Mean Corpuscular Volume 86.8 fL (80.0-100.0); Monocytes # (auto) 0.4 10 ^3/uL (0-1.3); Monocytes % (auto) 7.2 % (0.0-12.0); Neutrophils # (auto) 3.6 10 ^3/uL (1.6-8.6); Neutrophils % (auto) 60.7 % (37.0-80.0); Platelet Count (auto) 301 10^3/uL (140-450); Red Blood Cells 4.72 10^6/uL (4.5-5.90); Red Cell Distribution Width 13.8 % (11.8-14.3)
[2024-11-08 05:56] LABS: Opiate Scree,Urine Pos (NEGATIVE)
[2024-11-08 05:57] LABS: Amphetamine Screen, Urine Pos (NEGATIVE); Barbiturate Scree,Urine Neg (NEGATIVE); Benzodiazephine Screen, Urine Neg (NEGATIVE); Cannabinoid Screen, Urine Neg (NEGATIVE); Cocaine Screen, Urine Neg (NEGATIVE); Phencyclidine Screen, Urine Neg (NEGATIVE)
[2024-11-08 09:00] VITALS: BP 156/89; PULSE 79; RESP 17; TEMP 97.9; O2SAT 99
--- NOTE | 2024-11-08 16:15 | DVHDS2 ---
Discharge Summary Date of Admission Nov 06, 2024 at 21:06 Date of Discharge: Nov 08, 2024 Labs/Diagnostic Data: Laboratory Results Test 11/08/24 06:35 11/08/24 05:27 11/08/24 04:59 11/07/24 03:20 POC Glucose 111 mg/dl (70-106) Urine Opiates Screen Pos (NEGATIVE) Urine Fentanyl Screen Neg (NEGATIVE) Urine Barbiturates Screen Neg (NEGATIVE) Urine Phencyclidine Screen Neg (NEGATIVE) Urine Amphetamines Screen Pos (NEGATIVE) Urine Benzodiazepines Screen Neg (NEGATIVE) Urine Cocaine Screen Neg (NEGATIVE) Urine Cannabinoids Screen Neg (NEGATIVE) White Blood Count 6.0 10^3/uL (4.4-10.8) Red Blood Count 4.72 10^6/uL (4.5-5.90) Hemoglobin 13.8 g/dL (13.5-17.5) Hematocrit 41.0 % (41.0-53.0) Mean Corpuscular Volume 86.8 fL (80.0-100.0) Mean Corpuscular Hemoglobin 29.2 pg (28.0-32.0) Mean Corpuscular Hemoglobin Concent 33.6 g/dL (32.0-36.0) Red Cell Distribution Width 13.8 % (11.8-14.3) Platelet Count 301 10^3/uL (140-450) Mean Platelet Volume 8.5 fL (6.9-10.8) Neutrophils (%) (Auto) 60.7 % (37.0-80.0) Lymphocytes (%) (Auto) 27.5 % (10.0-50.0) Monocytes (%) (Auto) 7.2 % (0.0-12.0) Eosinophils (%) (Auto) 3.0 % (0.0-7.0) Basophils (%) (Auto) 1.6 % (0.0-2.0) Neutrophils # (Auto) 3.6 10 ^3/uL (1.6-8.6) Lymphocytes # (Auto) 1.6 10 ^3/uL (0.4-5.4) Monocytes # (Auto) 0.4 10 ^3/uL (0-1.3) Eosinophils # (Auto) 0.2 10 ^3/uL (0-0.8) Basophils # (Auto) 0.1 10 ^3/uL (0-0.2) Nucleated Red Blood Cells 0.0 % Creatinine 0.91 mg/dL (0.700-1.30) Glomerular Filtration Rate Calc 100 mL/min (>90) Hemoglobin A1c 6.5 % A1C (<5.7) Hepatitis B Surface Antigen Negative (Negative) Hepatitis C Antibody Negative (Negative) Test 11/06/24 15:32 Sodium Level 141 mmol/L (136-145) Potassium Level 4.0 mmol/L (3.5-5.1) Chloride Level 109 mmol/L (98-107) Carbon Dioxide Level 25 mmol/L (20-31) Anion Gap 7 (5-15) Blood Urea Nitrogen 33 mg/dL (9-23) BUN/Creatinine Ratio 28.9 (10.0-20.0) Serum Glucose 112 mg/dL (74-106) Lactic Acid Level 1.3 mmol/L (0.4-2.0) Calcium Level 10.2 mg/dL (8.7-10.4) Total Bilirubin 0.5 mg/dL (0.2-1.0) Aspartate Amino Transferase (AST) 20 U/L (13-40) Alanine Aminotransferase (ALT) 24 U/L (7-40) Alkaline Phosphatase 121 U/L (46-116) Total Protein 7.2 g/dL (5.7-8.2) Albumin 4.6 g/dL (3.2-4.8) Other Laboratory Tests 11/08/24 04:59 11/06/24 15:32 Brief Hx & Hospital Course: 54-year-old male with a known history of hypertension, anxiety disorder, chronic pain syndrome currently on methadone initially admitted to the hospital with left foot pain and blister found to have left foot cellulitis. Patient was started on IV antibiotics. Patient left against medical advice before completion of treatment. Condition at Discharge: Undetermined Final Diagnosis/Problems List 1. Left foot cellulitis 2. Hypertension 3. Anxiety disorder 4. Chronic pain syndrome currently on methadone Secondary Diagnosis: Patient was left against medical advice Discharge Disposition: AMA SNF Discharge Will this Physician continue t: No Discharge Statement: "Patient was advised to return to the ER or call 911 if any headaches, dizziness, shortness of breath, chest pain, abdominal pain, bleeding, fevers, or worsening of medical condition. Patient was counseled about treatment plan, medications, possible side effects, patientverbalized understanding. All questions were answered to the best of my ability. This discharge took greater then 30 minutes in planning, reviewing documentation, counseling the patient, and discussing with other team members." ASSESSMENT ASSESSMENT Assessment Date of Service: Nov 08, 2024 Billing Provider: CHANCE REYNOSO MD Common Visit Codes: NOT BILLABLE CHANCE REYNOSO MD Nov 08, 2024 16:15
== END 2024-11-08 11:30 | disposition left against medical advice (07) | DRG 603 ==
LOC: ER 13:28 → OVERFLOW 21:06 → TELE 11-07 00:40 → WEST WING 11-07 21:43
PROVIDERS: ADMIT Nurse Practitioner Family; ATTEND Nurse Practitioner Family
DX: L03.116 Cellulitis of left lower limb (principal); E11.9 Type 2 diabetes mellitus without complications; I10 Essential (primary) hypertension; I80.9 Phlebitis and thrombophlebitis of unspecified site; N43.3 Hydrocele, unspecified; Z53.29 Procedure and treatment not carried out because of patient's decision for other reasons; S90.822A Blister (nonthermal), left foot, initial encounter; K21.9 Gastro-esophageal reflux disease without esophagitis; G89.4 Chronic pain syndrome; F41.9 Anxiety disorder, unspecified; Z90.49 Acquired absence of other specified parts of digestive tract; Z87.11 Personal history of peptic ulcer disease; Z79.84 Long term (current) use of oral hypoglycemic drugs; X58.XXXA Exposure to other specified factors, initial encounter; Y93.89 Activity, other specified; Y92.89 Other specified places as the place of occurrence of the external cause; Y99.8 Other external cause status; Z87.442 Personal history of urinary calculi
CPT/HCPCS: 36415; 76870; 80053; 80307; 82565; 82962; 83036; 83605; 85025; 86803; 87040; 87340; 93926; 93970; 96365; G0378; J1815; J1885